=== PATIENT | female | born 1970 | race African-American/Black ===

== ENCOUNTER 2019-01-06 12:54 | Emergency (ER) | payer MEDICAID ==
[~2019-01-06] VITALS: Ht 160 cm; Wt 75.0 kg
[~2019-01-06 12:54] MED LIST: ASPI-1393 PO; LIP40 PO; WELLBUTRIN
[2019-01-06] MEDS ORDERED: MORPHINE SULFATE 4 MG/ML CPJ (NOT FOR IM USE) IV STA (16:41)
[2019-01-06] MEDS ORDERED: ONDANSETRON HCL 4MG/2ML INJ IV STA (16:41)
[2019-01-06] MEDS ORDERED: SODIUM CHLORIDE 0.9% 1,000 ML IV ONE (16:41)
[2019-01-06 16:59] LABS: BASOPHILS % 0.4 % (0.0-2.0); EOSINOPHILS % 1.6 % (0.0-5.0); HEMATOCRIT. 37.1 % (36.0-48.0); HEMOGLOBIN. 12.2 g/dL (12.0-16.0); LYMPHOCYTES % 21.2 % (20.0-50.0); MEAN CORPUSCULAR VOLUME 90.9 fL (81.0-99.0); MEAN PLATELET VOLUME 7.6 fl (7.4-10.4); MONOCYTES % 5.3 % (2.0-8.0); NEUTROPHILS % 71.5 % (40.0-76.0); PLATELET 306 x1000/uL (130-400); RED BLOOD CELL COUNT 4.08 mill/uL (4.2-5.4); RED CELL DISTRIBUTION WIDTH 13.8 % (11.6-14.6)
[2019-01-06 17:00] LABS: CLARITY URINE CLEAR (CLEAR); COLOR URINE YELLOW (YELLOW); KETONES URINE NEGATIVE (NEGATIVE); LEUKOCYTE ESTERASE URINE 3+ (NEGATIVE); NITRITE URINE NEGATIVE (NEGATIVE); OCCULT BLOOD URINE 3+ (NEGATIVE); PH URINE 8.5 (4.5-8.0); PROTEIN URINE NEGATIVE (NEGATIVE); SPECIFIC GRAVITY URINE 1.012 (1.005-1.030); UROBILINOGEN URINE 0.2 E.U./dL (0.2-1.0)
[2019-01-06 17:05] LABS: CHLORIDE 108 mEq/L (98-107)
[2019-01-06 17:07] LABS: HCG SCREEN NEGATIVE; PARTIAL THROMBOPLASTIN TIME 25.9 sec (23.4-31.0); PROTHROMBIN TIME 10.1 sec (9.6-11.0)
[2019-01-06 18:30] VITALS: BP 122/62
[2019-01-06] MEDS ORDERED: CEFTRIAXONE 1 G PREMIX 50 ML IV ONE (18:45)
== END 2019-01-06 19:30 | disposition home or self-care (01) ==
LOC: ER 12:54
DX: N39.0 Urinary tract infection, site not specified (principal); R31.9 Hematuria, unspecified; Z88.8 Allergy status to other drugs, medicaments and biological substances; Z79.899 Other long term (current) drug therapy
CPT/HCPCS: 36415; 76700; 80053; 81003; 81025; 83690; 84703; 85025; 85610; 85730; 87086; 96365; 96375; 99284; J0696; J2270; J2405; J7030; Z7610

== ENCOUNTER 2020-02-17 18:23 | Emergency (ER) | payer MEDICAID ==
[~2020-02-17] VITALS: Ht 157.5 cm; Wt 75.0 kg
[~2020-02-17 18:23] MED LIST changes: -ASPI-1393 PO; +ASPI-1497 PO
[2020-02-17 18:26] VITALS: BP 106/66
[2020-02-17] MEDS ORDERED: IBUPROFEN 600MG TABLET PO ONE (21:30)
[2020-02-17] MEDS ORDERED: TETANUS, DIPHTHERIA, PERTUSSIS VAC/PF 0.5ML (>7YR OLD) IM ONE (22:15)
== END 2020-02-17 22:47 | disposition home or self-care (01) ==
LOC: ER 18:23
DX: S61.242A Puncture wound with foreign body of right middle finger without damage to nail, initial encounter (principal); Z79.899 Other long term (current) drug therapy; Z88.8 Allergy status to other drugs, medicaments and biological substances; Z79.82 Long term (current) use of aspirin; X58.XXXA Exposure to other specified factors, initial encounter; Y93.89 Activity, other specified; Y92.89 Other specified places as the place of occurrence of the external cause; Y99.8 Other external cause status
CPT/HCPCS: 73120; 90471; 90715; 99283

== ENCOUNTER 2020-06-03 21:36 | Emergency (ER) | payer MEDICAID ==
[~2020-06-03] VITALS: Ht 157.5 cm; Wt 74.7 kg
[2020-06-03 23:38] LABS: CLARITY URINE CLEAR (CLEAR); COLOR URINE YELLOW (YELLOW); KETONES URINE NEGATIVE (NEGATIVE); LEUKOCYTE ESTERASE URINE NEGATIVE (NEGATIVE); NITRITE URINE NEGATIVE (NEGATIVE); OCCULT BLOOD URINE NEGATIVE (NEGATIVE); PROTEIN URINE NEGATIVE (NEGATIVE); SPECIFIC GRAVITY URINE 1.022 (1.005-1.030); UROBILINOGEN URINE 0.2 E.U./dL (0.2-1.0)
[2020-06-04] MEDS ORDERED: FLUCONAZOLE 100MG TABLET PO ONE (00:15)
[2020-06-04 00:23] VITALS: BP 108/79
[2020-06-04] MEDS ORDERED: FLUCONAZOLE 150MG TABLET PO STA (00:36)
[2020-06-07 04:07] LABS: NEISSERIA GONORRHOEAE NAA Negative (Negative)
== END 2020-06-04 01:08 | disposition home or self-care (01) ==
LOC: ER 21:36
DX: L29.2 Pruritus vulvae (principal); F32.9 Major depressive disorder, single episode, unspecified; F43.10 Post-traumatic stress disorder, unspecified; Z79.82 Long term (current) use of aspirin; Z88.8 Allergy status to other drugs, medicaments and biological substances
CPT/HCPCS: 81003; 87210; 87491; 87591; 93005; 99284

== ENCOUNTER 2022-04-20 21:47 | Emergency (ER) | payer MEDICAID, OTHER ==
[~2022-04-20] VITALS: Ht 160 cm; Wt 74.8 kg
[~2022-04-20 21:47] MED LIST changes: +ERYT1OIN6 EACHEYE
[2022-04-20 22:01] VITALS: BP 137/83
== END 2022-04-21 02:20 | disposition left against medical advice (07) ==
LOC: ER 21:47
DX: Z53.21 Procedure and treatment not carried out due to patient leaving prior to being seen by health care provider (principal)

== ENCOUNTER 2023-02-14 21:29 | Emergency (ER) | payer MEDICAID, OTHER ==
[~2023-02-14] VITALS: Ht 157.5 cm; Wt 77.2 kg
[2023-02-14 21:31] VITALS: BP 132/93; PULSE 57; RESP 12; TEMP 97.7; O2SAT 100
[2023-02-14 22:18] LABS: BASOPHILS % 0.6 % (0.0-2.0); EOSINOPHILS % 8.3 % (0.0-5.0); HEMATOCRIT. 37.7 % (36.0-48.0); HEMOGLOBIN. 12.7 g/dL (12.0-16.0); LYMPHOCYTES % 41.8 % (20.0-50.0); MEAN CORPUSCULAR HEMOGLOBIN 30.5 pg (28.0-32.0); MEAN CORPUSCULAR VOLUME 90.9 fL (81.0-99.0); MEAN PLATELET VOLUME 6.9 fl (7.4-10.4); MONOCYTES % 6.2 % (2.0-8.0); NEUTROPHILS % 43.1 % (40.0-76.0); PLATELET 292 x1000/uL (130-400); RED BLOOD CELL COUNT 4.15 mill/uL (4.2-5.4); RED CELL DISTRIBUTION WIDTH 13.5 % (11.6-14.6)
[2023-02-14 22:20] LABS: CHLORIDE 105 mEq/L (98-107)
[2023-02-14] MEDS ORDERED: KETOROLAC 30MG/ML VIAL IV STA (22:21)
[2023-02-14] MEDS ORDERED: SODIUM CHLORIDE 0.9% 1,000 ML IV ONE (22:30)
[2023-02-15] MEDS ORDERED: IBUP-2028 MT (00:12)
[2023-02-15] MEDS ORDERED: KETOROLAC 60MG/2ML VIAL IM ONE (00:30)
== END 2023-02-15 00:33 | disposition home or self-care (01) ==
LOC: ER 21:29
DX: R55 Syncope and collapse (principal); R51.9 Headache, unspecified; Z88.8 Allergy status to other drugs, medicaments and biological substances
CPT/HCPCS: 80053; 81025; 85025; 84484; 36415; 71045; 70450; 93005; 99285; 96372; J7030; J1885; Z7610